=== PATIENT | male | born 1965 | race Caucasian/White ===

== ENCOUNTER 2020-05-25 11:16 | Inpatient (IN) | payer BC, OTHER ==
[~2020-05-25] VITALS: Ht 182.9 cm; Wt 98.5 kg
[2020-05-25] MEDS ORDERED: DEXTROSE 50% WATER 50ML SYRINGE IV ONE ×2 (11:30→11:45)
[2020-05-25] MEDS ORDERED: DEXT 10% WATER 1,000 ML IV SCH (11:45)
[2020-05-25] MEDS ORDERED: GLUCAGON,HUMAN RECOMBINANT 1MG/VIAL IM ONE (11:45)
[2020-05-25 12:09] LABS: CHLORIDE 109 mEq/L (98-107)
[2020-05-25 12:15] LABS: HEMATOCRIT. 36.8 % (42.0-52.0); HEMOGLOBIN. 12.2 g/dL (14.0-18.0); MEAN CORPUSCULAR VOLUME 102.4 fL (80.0-94.0); MEAN PLATELET VOLUME 8.8 fl (7.4-10.4); PLATELET 205 x1000/uL (130-400); RED BLOOD CELL COUNT 3.59 mill/uL (4.7-6.1); RED CELL DISTRIBUTION WIDTH 14.5 % (11.6-14.6)
[2020-05-25 12:20] LABS: INR 0.9; PROTHROMBIN TIME 9.4 sec (9.6-11.0)
[2020-05-25 12:54] LABS: PLATELET ESTIMATE NORMAL
[2020-05-25] MEDS ORDERED: ONDANSETRON HCL 4MG/2ML INJ IV PRN (13:00)
[2020-05-25] MEDS ORDERED: ACETAMINOPHEN 325MG TABLET PO PRN (13:00)
[2020-05-25] MEDS ORDERED: DEXTROSE 50% WATER 50ML SYRINGE IV PRN (13:15)
[2020-05-25 13:32] LABS: CLARITY URINE CLEAR (CLEAR); COLOR URINE YELLOW (YELLOW); KETONES URINE 2+ (NEGATIVE); LEUKOCYTE ESTERASE URINE NEGATIVE (NEGATIVE); NITRITE URINE NEGATIVE (NEGATIVE); OCCULT BLOOD URINE TRACE (NEGATIVE); PROTEIN URINE TRACE (NEGATIVE); SPECIFIC GRAVITY URINE 1.024 (1.005-1.030); UROBILINOGEN URINE 0.2 E.U./dL (0.2-1.0)
[2020-05-25] MEDS: DEXTROSE 5% WATER 1,000 ML IV SCH ×2 (13:50→21:00)
[2020-05-25] MEDS: BLOOD SUGAR DIAGNOSTIC STRIP TEST SCH ×2 (16:34→21:00)
[2020-05-25] MEDS: HEPARIN 5000 UNITS/ML VIAL SUBCUT SCH (20:41)
[2020-05-26] MEDS: HALOPERIDOL LACTATE 5MG/ML VIAL IM PRN (00:13)
[2020-05-26] MEDS: DEXTROSE 5% WATER 1,000 ML IV SCH ×2 (05:03→15:03)
[2020-05-26] MEDS: BLOOD SUGAR DIAGNOSTIC STRIP TEST SCH ×4 (06:14→21:00)
[2020-05-26] MEDS: HEPARIN 5000 UNITS/ML VIAL SUBCUT SCH ×2 (09:00→22:03)
[2020-05-26 11:07] LABS: HEMATOCRIT. 34.5 % (42.0-52.0); HEMOGLOBIN. 11.5 g/dL (14.0-18.0); MEAN CORPUSCULAR HEMOGLOBIN 34.1 pg (28.0-32.0); MEAN CORPUSCULAR VOLUME 102.1 fL (80.0-94.0); PLATELET 150 x1000/uL (130-400); RED BLOOD CELL COUNT 3.38 mill/uL (4.7-6.1); RED CELL DISTRIBUTION WIDTH 14.5 % (11.6-14.6)
[2020-05-26 11:14] LABS: CHLORIDE 102 mEq/L (98-107)
[2020-05-26 13:10] VITALS: BP 133/90
[2020-05-26] MEDS ORDERED: POTASSIUM CHLORIDE 20MEQ/PACKET PO NR (13:45)
[2020-05-26 13:52] LABS: PLATELET ESTIMATE NORMAL
[2020-05-26] MEDS ORDERED: POTASSIUM CHLORIDE INJ 40 MEQ in DEXT 5% WATER 250 ML IV SCH (16:00)
[2020-05-26] MEDS ORDERED: MAGNESIUM 2 G PREMIX 50 ML IV SCH (16:00)
[2020-05-26 16:21] VITALS: BP 127/90
[2020-05-26] MEDS ORDERED: THIAMINE HCL 100 MG in SODIUM CHLORIDE 0.9% 49 ML IV ONE (16:30)
[2020-05-26 20:00] VITALS: BP 126/87
[2020-05-26 23:44] LABS: *AMPHETAMINES SCREEN URINE NEGATIVE (NEGATIVE); *BARBITURATES SCREEN URINE NEGATIVE (NEGATIVE); *BENZODIAZEPINES SCREEN URINE NEGATIVE (NEGATIVE); *COCAINE SCREEN URINE NEGATIVE (NEGATIVE); METHADONE URINE SCREEN NEGATIVE (NEGATIVE); OPIATES URINE SCREEN NEGATIVE (NEGATIVE); PHENCYCLIDINE URINE SCREEN NEGATIVE (NEGATIVE)
[2020-05-26 23:45] LABS: CANNABINOID URINE SCREEN NEGATIVE (NEGATIVE)
[2020-05-27] VITALS: BP 123/86
[2020-05-27 04:00] VITALS: BP 127/93
[2020-05-27] MEDS: BLOOD SUGAR DIAGNOSTIC STRIP TEST SCH ×4 (07:44→21:34)
[2020-05-27 08:00] VITALS: BP 132/84
[2020-05-27] MEDS: HEPARIN 5000 UNITS/ML VIAL SUBCUT SCH ×2 (08:42→21:34)
[2020-05-27 09:55] LABS: BASOPHILS % 0.5 % (0.0-2.0); HEMATOCRIT. 36.6 % (42.0-52.0); HEMOGLOBIN. 12.1 g/dL (14.0-18.0); LYMPHOCYTES % 11.8 % (20.0-50.0); MEAN CORPUSCULAR HEMOGLOBIN 33.7 pg (28.0-32.0); MEAN CORPUSCULAR VOLUME 102.1 fL (80.0-94.0); MEAN PLATELET VOLUME 9.6 fl (7.4-10.4); MONOCYTES % 8.5 % (2.0-8.0); NEUTROPHILS % 78.2 % (40.0-76.0); PLATELET 153 x1000/uL (130-400); RED BLOOD CELL COUNT 3.58 mill/uL (4.7-6.1); RED CELL DISTRIBUTION WIDTH 14.3 % (11.6-14.6)
[2020-05-27 10:04] LABS: CHLORIDE 110 mEq/L (98-107)
[2020-05-27 12:00] VITALS: BP 129/85
[2020-05-27 16:00] VITALS: BP 119/78
[2020-05-27 20:00] VITALS: BP 107/80
[2020-05-27] MEDS: THIAMINE HCL 100MG TABLET PO SCH (21:34)
[2020-05-28] VITALS: BP 122/85
[2020-05-28 04:00] VITALS: BP 130/87
[2020-05-28] MEDS: BLOOD SUGAR DIAGNOSTIC STRIP TEST SCH ×4 (06:29→20:21)
[2020-05-28 07:42] LABS: BASOPHILS % 1.2 % (0.0-2.0); EOSINOPHILS % 1.2 % (0.0-5.0); HEMATOCRIT. 31.3 % (42.0-52.0); HEMOGLOBIN. 10.5 g/dL (14.0-18.0); MEAN CORPUSCULAR HEMOGLOBIN 33.9 pg (28.0-32.0); MEAN CORPUSCULAR VOLUME 100.6 fL (80.0-94.0); MONOCYTES % 14.2 % (2.0-8.0); NEUTROPHILS % 61.4 % (40.0-76.0); PLATELET 137 x1000/uL (130-400); RED BLOOD CELL COUNT 3.11 mill/uL (4.7-6.1); RED CELL DISTRIBUTION WIDTH 14.3 % (11.6-14.6)
[2020-05-28 08:00] VITALS: BP 111/74
[2020-05-28 08:12] LABS: CHLORIDE 109 mEq/L (98-107)
[2020-05-28] MEDS: THIAMINE HCL 100MG TABLET PO SCH ×2 (09:27→18:46)
[2020-05-28] MEDS: HEPARIN 5000 UNITS/ML VIAL SUBCUT SCH ×2 (09:28→20:26)
[2020-05-28 12:00] VITALS: BP 125/87
[2020-05-28] MEDS ORDERED: IOHEXOL-300 100 ML BOTTLE ONE (13:35)
[2020-05-28 16:00] VITALS: BP 118/85
[2020-05-28 17:45] LABS: VITAMIN B12 SERUM 518 pg/mL (211-911)
[2020-05-28 20:00] VITALS: BP 131/94
[2020-05-29] VITALS: BP 131/92
[2020-05-29 04:00] VITALS: BP 125/89
[2020-05-29] MEDS: BLOOD SUGAR DIAGNOSTIC STRIP TEST SCH ×4 (06:32→20:05)
[2020-05-29 07:54] LABS: BASOPHILS % 1.2 % (0.0-2.0); EOSINOPHILS % 1.6 % (0.0-5.0); HEMATOCRIT. 32.7 % (42.0-52.0); HEMOGLOBIN. 10.8 g/dL (14.0-18.0); LYMPHOCYTES % 20.6 % (20.0-50.0); MEAN CORPUSCULAR HEMOGLOBIN 33.3 pg (28.0-32.0); MEAN CORPUSCULAR VOLUME 100.8 fL (80.0-94.0); MONOCYTES % 14.9 % (2.0-8.0); NEUTROPHILS % 61.7 % (40.0-76.0); PLATELET 138 x1000/uL (130-400); RED BLOOD CELL COUNT 3.25 mill/uL (4.7-6.1); RED CELL DISTRIBUTION WIDTH 14.1 % (11.6-14.6)
[2020-05-29 08:30] VITALS: BP 135/87
[2020-05-29 08:48] LABS: CHLORIDE 107 mEq/L (98-107)
[2020-05-29] MEDS: THIAMINE HCL 100MG TABLET PO SCH ×2 (08:48→16:31)
[2020-05-29] MEDS: HEPARIN 5000 UNITS/ML VIAL SUBCUT SCH ×2 (08:49→20:01)
[2020-05-29 12:04] VITALS: BP 122/84
[2020-05-29 16:16] VITALS: BP 139/79
[2020-05-29 17:23] LABS: AMYLASE 66 IU/L (25-115)
[2020-05-29 20:00] VITALS: BP 134/78
[2020-05-30] VITALS (7 sets, daily range): BP systolic 108–149; BP diastolic 68–104
[2020-05-30] MEDS: BLOOD SUGAR DIAGNOSTIC STRIP TEST SCH ×4 (06:31→21:00)
[2020-05-30 06:53] LABS: BASOPHILS % 0.1 % (0.0-2.0); EOSINOPHILS % 0.6 % (0.0-5.0); HEMATOCRIT. 33.1 % (42.0-52.0); HEMOGLOBIN. 11.3 g/dL (14.0-18.0); LYMPHOCYTES % 7.8 % (20.0-50.0); MEAN CORPUSCULAR HEMOGLOBIN 34.3 pg (28.0-32.0); MEAN CORPUSCULAR VOLUME 100.8 fL (80.0-94.0); MEAN PLATELET VOLUME 9.3 fl (7.4-10.4); MONOCYTES % 9.6 % (2.0-8.0); NEUTROPHILS % 81.9 % (40.0-76.0); PLATELET 134 x1000/uL (130-400); RED BLOOD CELL COUNT 3.28 mill/uL (4.7-6.1); RED CELL DISTRIBUTION WIDTH 14.2 % (11.6-14.6)
[2020-05-30 06:59] LABS: CHLORIDE 107 mEq/L (98-107)
[2020-05-30 07:07] LABS: TOTAL IRON BINDING CAPACITY 276 ug/dL (250-450)
[2020-05-30 07:10] LABS: T4 FREE 1.01 ng/dL (0.76-1.46)
[2020-05-30] MEDS: THIAMINE HCL 100MG TABLET PO SCH ×2 (09:40→16:44)
[2020-05-30] MEDS: HEPARIN 5000 UNITS/ML VIAL SUBCUT SCH ×2 (09:42→22:52)
[2020-05-30] MEDS: IRON SUCROSE COMPLEX 100 MG/5 ML ML IV SCH (13:03)
[2020-05-31] VITALS: BP 132/86
[2020-05-31 04:00] VITALS: BP 132/85
[2020-05-31] MEDS: BLOOD SUGAR DIAGNOSTIC STRIP TEST SCH ×4 (07:20→20:36)
[2020-05-31 08:50] VITALS: BP 125/89
[2020-05-31] MEDS: IRON SUCROSE COMPLEX 100 MG/5 ML ML IV SCH (09:16)
[2020-05-31] MEDS: THIAMINE HCL 100MG TABLET PO SCH ×2 (09:17→16:35)
[2020-05-31] MEDS: HEPARIN 5000 UNITS/ML VIAL SUBCUT SCH ×2 (09:17→22:37)
[2020-05-31 12:21] VITALS: BP 159/94
[2020-05-31] MEDS ORDERED: PIPERACILLIN/TAZOBACTAM 3.375 G/VIAL IV SCH (14:00)
[2020-05-31] MEDS ORDERED: VANCOMYCIN 1250MG in DEXTROSE 5% WATER 250ML IV NR (15:30)
[2020-05-31 16:26] VITALS: BP 148/87
[2020-05-31] MEDS: PIPERACILLIN/TAZOBACTAM 3.375 G in DEXT 5% WATER 100 ML IV SCH (17:42)
[2020-05-31 20:00] VITALS: BP 100/83
[2020-06-01] VITALS (7 sets, daily range): BP systolic 98–148; BP diastolic 57–87
[2020-06-01] MEDS ORDERED: VANCOMYCIN 750 MG PREMIX 150 ML IV SCH
[2020-06-01] MEDS: BLOOD SUGAR DIAGNOSTIC STRIP TEST SCH ×6 (00:35→20:41)
[2020-06-01] MEDS: PIPERACILLIN/TAZOBACTAM 3.375 G in DEXT 5% WATER 100 ML IV SCH ×3 (01:50→17:17)
[2020-06-01] MEDS: THIAMINE HCL 100MG TABLET PO SCH ×2 (09:07→17:00)
[2020-06-01] MEDS: IRON SUCROSE COMPLEX 100 MG/5 ML ML IV SCH (09:08)
[2020-06-01] MEDS: HEPARIN 5000 UNITS/ML VIAL SUBCUT SCH ×2 (09:08→21:46)
[2020-06-01] MEDS: HALOPERIDOL LACTATE 5MG/ML VIAL IM PRN (17:29)
[2020-06-01] MEDS: MEROPENEM 500 MG in SODIUM CHLORIDE 0.9% 50 ML IV SCH (21:46)
[2020-06-02] VITALS (7 sets, daily range): BP systolic 114–201; BP diastolic 79–181
[2020-06-02] MEDS: BLOOD SUGAR DIAGNOSTIC STRIP TEST SCH ×5 (00:29→16:00)
[2020-06-02] MEDS: MEROPENEM 500 MG in SODIUM CHLORIDE 0.9% 50 ML IV SCH ×2 (04:32→13:15)
[2020-06-02] MEDS: HEPARIN 5000 UNITS/ML VIAL SUBCUT SCH (07:50)
[2020-06-02] MEDS: THIAMINE HCL 100MG TABLET PO SCH ×2 (07:50→17:00)
[2020-06-02] MEDS ORDERED: CLONIDINE 0.1MG TABLET PO PRN (11:30)
[2020-06-02 13:11] LABS: C-PEPTIDE 1.5 ng/mL (1.1-4.4); INSULIN 3.6 uIU/mL (2.6-24.9)
[2020-06-02 13:11] LABS: C-PEPTIDE 2.6 ng/mL (1.1-4.4); INSULIN 5.6 uIU/mL (2.6-24.9)
[2020-06-03 13:07] LABS: PRO INSULIN 2.3 pmol/L (0.0-10.0)
[2020-06-04 13:09] LABS: PRO INSULIN 2.7 pmol/L (0.0-10.0)
[2020-06-04 13:09] LABS: PRO INSULIN 2.4 pmol/L (0.0-10.0)
[2020-06-04 14:01] LABS: C-PEPTIDE 1.9 ng/mL (1.1-4.4); INSULIN 3.9 uIU/mL (2.6-24.9)
== END 2020-06-02 18:43 | disposition short-term general hospital (02) | DRG 871 ==
LOC: ER 11:28 → MICUSO 12:49 → EDBEDREQSVC 12:54 → EDBEDREQ 12:54 → 6WST 05-26 11:26
PROVIDERS: ADMIT Internal Medicine; ATTEND Internal Medicine
DX: A41.9 Sepsis, unspecified organism (principal); G93.41 Metabolic encephalopathy; J69.0 Pneumonitis due to inhalation of food and vomit; E87.1 Hypo-osmolality and hyponatremia; E46 Unspecified protein-calorie malnutrition; K57.32 Diverticulitis of large intestine without perforation or abscess without bleeding; K86.2 Cyst of pancreas; E11.649 Type 2 diabetes mellitus with hypoglycemia without coma; E83.42 Hypomagnesemia; E87.6 Hypokalemia; R74.01 Elevation of levels of liver transaminase levels; E87.8 Other disorders of electrolyte and fluid balance, not elsewhere classified; D49.0 Neoplasm of unspecified behavior of digestive system; D64.9 Anemia, unspecified; I10 Essential (primary) hypertension; R13.10 Dysphagia, unspecified; K62.89 Other specified diseases of anus and rectum; Z20.828 Contact with and (suspected) exposure to other viral communicable diseases; Z80.3 Family history of malignant neoplasm of breast; Z83.3 Family history of diabetes mellitus; Z98.84 Bariatric surgery status; Z68.29 Body mass index [BMI] 29.0-29.9, adult; Z79.899 Other long term (current) drug therapy
CPT/HCPCS: 36415; 70551; 71045; 74178; 80053; 80305; 81003; 82105; 82150; 82378; 82533; 82607; 82947; 82962; 83036; 83525; 83540; 83550; 83735; 84145; 84206; 84439; 84443; 84484; 84681; 85025; 86301; 87426; 92610; 93005; 95816; 96374; 97110; 97116; 97162; 97530; 99285; J1610; J1630; J1644; J2185; J2543; J3370; J3411; J3475; J3480; J7040; J7060; J7070; Q9967